=== PATIENT | female | born 1970 | race African-American/Black ===

== ENCOUNTER 2022-03-14 15:43 | Emergency (ER) | payer MEDICAID ==
[~2022-03-14] VITALS: Ht 160 cm; Wt 103.0 kg
[2022-03-14 16:24] VITALS: BP 138/100
[2022-03-14] MEDS ORDERED: KETOROLAC 60MG/2ML VIAL IM ONE (18:15)
[2022-03-14] MEDS ORDERED: IBUP-2029 MT (18:55)
== END 2022-03-14 19:10 | disposition home or self-care (01) ==
LOC: ER 15:43
DX: M79.641 Pain in right hand (principal); I10 Essential (primary) hypertension; W01.0XXA Fall on same level from slipping, tripping and stumbling without subsequent striking against object, initial encounter; Y93.89 Activity, other specified; Y92.9 Unspecified place or not applicable; Z68.41 Body mass index [BMI] 40.0-44.9, adult
CPT/HCPCS: 73120; 96372; 99283; J1885